=== PATIENT | female | born 1980 | race Caucasian/White ===

== ENCOUNTER 2016-12-30 00:03 | Inpatient (IN) | payer OTHER ==
--- NOTE | ~2016-12-30 | DS ---
Unit #: [id number] #: [id number] Patient: HIRAM CAUSEY [id number] [facility] [address] [place] [address] [id number] MR#: [id number] NAME: HIRAM CAUSEY. ROOM: P254 Age: 36 Sex: F Admission Date: 12/30/2016 : 1980 Discharge Date: 12/30/2016 Attending Physician: Matty Mijares M.D. DISCHARGE SUMMARY REASON FOR ADMISSION Substance abuse and depression. DIAGNOSTIC STUDIES LABORATORY RESULTS: Remarkable for MCV 98.4. Urine drug screen positive for marijuana, amphetamine, and benzodiazepine. HOSPITAL COURSE The patient was admitted to inpatient unit. The patient was able to maintain safe behavior, compliant, cooperative, and redirectable. The patient was able to contract for safety and wanted to go home. The patient was not holdable at this time. The patient currently denied any psychotic symptom or any suicidal or homicidal ideation. Subsequently, the patient was discharged with a plan to follow up in outpatient program. DISCHARGE MEDICATIONS None. DISCHARGE DIAGNOSES Psychiatric: Mood disorder, not otherwise specified, F32.9; amphetamine use disorder, severe, F15.20; cannabis abuse, moderate, F12.20; and sedative hypnotic use disorder, F13.20. Secondary diagnosis: Deferred. Medical diagnosis: Hypertension. Stressors: Psychosocial stressors. DISCHARGE INSTRUCTIONS The patient to follow up in outpatient clinic as per social sciences chair. CONDITION ON DISCHARGE The patient was pleasant and cooperative. Denied any psychotic symptoms or any suicidal ideation. PROGNOSIS Guarded. DIET AND ACTIVITY As tolerated. Unit #: [id number] #: [id number] Patient: HIRAM CAUSEY Dictated by... Brandi Delgadillo/amanda TD: 12/30/2016 20:04 JOB #: [id number] DISCHARGE SUMMARY Page 1 of 1 X Matty Mijares MD X DISCHARGE SUMMARY
--- NOTE | ~2016-12-30 | PA ---
Unit #: [id number] #: [id number] Patient: DIRK LARSEN [id number] [facility] [address] [place] [address] [id number] I MR#: [id number] NAME: DIRK LARSEN. ROOM: P254 Age: 36 Sex: F Admission Date: 12/30/2016 : 1980 Date of Assessment: Attending Physician: Matty Mijares M.D. Admitting Physician: Matty Mijares M.D. PSYCHIATRIC ASSESSMENT INFORMANTS The patient reliability, fair informant and chart reliability, good. CHIEF COMPLAINT Substance abuse. HISTORY OF PRESENT ILLNESS Ms. Dirk Larsen is a 36-year-old white female, who presented due to making comments about thoughts of hurting herself on 12/29/2016. The patient reported "I took a whole bottle of BuSpar on 8 a.m. and woke up at 6 p.m." The patient cannot confirm how many pills she ingested. The patient reported no current symptoms of overdose. The patient reported began scratching her arm because she still wanted to , the patient has multiple superficial scratches, but the patient reported to the technical writer that she was using different substances and was feeling sad and depressed, but currently denied any suicidal or homicidal ideation. Denied any psychotic symptom. The patient reported using marijuana and methamphetamine. The patient was able to contract for safety, compliant, cooperative, and redirectable. PAST PSYCHIATRIC HISTORY Remarkable for history of depression and anxiety, but no history of any suicide attempt. FAMILY HISTORY AND SOCIAL HISTORY The patient currently homeless and poor support system. No history of any abuse. MEDICAL HISTORY Remarkable for hypertension. Musculoskeletal; muscle strength and tone, no atrophy or abnormal movement. Gait normal. MEDICATION HISTORY None. ALLERGIES No known drug allergies. SUBSTANCE ABUSE HISTORY The patient reported tobacco use, age of onset 8; alcohol, age of onset 12; marijuana, age of onset 13; and methamphetamine, age of onset 18. Longest period of sobriety 2 days. Last period of sobriety 1 year ago. The patient reported history of blackout, but no history of any HIV, Unit #: [id number] #: [id number] Patient: DIKR LARSEN hepatitis, withdrawal symptoms, or any IV drug use. REVIEW OF SYSTEMS HEENT: Eyes, clear. Ears, nose, mouth, and throat; clear. CARDIOVASCULAR: Unremarkable. RESPIRATORY: Unremarkable. GI: Unremarkable. : Unremarkable. SKIN: Unremarkable. LYMPH NODE: Unremarkable. NEUROLOGIC: Unremarkable. ENDOCRINE: Unremarkable. HEMATOLOGIC: Unremarkable. ALLERGIC/IMMUNOLOGIC: Unremarkable. MUSCULOSKELETAL: Muscle strength and tone, no atrophy or abnormal movement. Gait normal. MENTAL STATUS EXAMINATION CONSTITUTIONAL: Measurement of vital signs; temperature 98.4, heart rate 84, respiratory rate 16, blood pressure 147/90, and weight 127 pounds. GENERAL APPEARANCE: The patient dressed casually. The patient did not show any facial deformity. MUSCULOSKELETAL: Please see above. PSYCHIATRIC EXAMINATION Description of speech, regular rate. Description of thought process, circumstantial. Description of association, intact. Description of abnormal psychotic thinking; the patient denied any hallucinations, delusions, or any suicidal or homicidal ideation at this time, but reported those thoughts at the time of admission. Description of the patient's judgment: Concerning everyday activity, poor. Social situation, poor. Concerning psychiatric condition, poor. Complete mental status examination; oriented in time, place, and person. Recent and remote memory, fair. Attention span and concentration, fair. Language, able to name object and repeat phrases. Fund of knowledge, aware of current event and passive vocabulary intact. Mood and affect, sad and dysphoric. Insight and judgment, fair to poor. ASSETS AND LIABILITIES Assets, the patient is articulate and able to take care of her ADL. Liability, history of substance abuse and depression. ADMITTING DIAGNOSES Psychiatric: Mood disorder, not otherwise specified, F32.9 and amphetamine use disorder, severe, F15.20. Secondary diagnosis: Deferred. Medical diagnosis: Hypertension. Stressors: Psychosocial stressors. PSYCHIATRIC PLAN AND TREATMENT GOAL AND DISCHARGE PLAN 1. Advised to admit the patient on the inpatient unit. Provide safe, supportive, and structured environment. 2. Ordered labs; CBC, CMP, UA, and UDS. 3. Precaution for self-harm. Unit #: [id number] #: [id number] Patient: DIRK LARSEN 4. The patient to attend all the programing on the inpatient unit. If needed, consider medication. TREATMENT GOAL To attain euthymic mood, gain insight into her problem, and learn coping skills. DISCHARGE PLAN Plan to stabilize the patient and consider followup in outpatient program. ESTIMATED LENGTH OF STAY 1 to 3 days. Dictated by... Brandi Delgadillo/amanda TD: 12/30/2016 16:32 JOB #: [id number] PSYCHIATRIC ASSESSMENT Page 1 of 1 X Matty Mijares MD PSYCHIATRIC ASSESSMENT
--- NOTE | ~2016-12-30 | HP ---
Unit #: [id number] #: [id number] Patient: DIRK CAUSEY [id number] [place] [address] [id number] MR#: [id number] NAME: DIRK CAUSEY. ROOM: P254 Age: 36 Sex: F Admission Date: 12/30/2016 : 1980 Attending Physician: Matty Mijares M.D. Admitting Physician: Matty Mijares M.D. Primary Care Physician: Primary Care Physician No HISTORY AND PHYSICAL HISTORY OF PRESENT ILLNESS Dirk is a 36 year old admitted to [address] [place] [address] with depression. PAST MEDICAL HISTORY 1. History of cervical dysplasia. 2. High blood pressure. PAST SURGICAL HISTORY 1. LEEP. 2. Tubal ligation. 3. Umbilical hernia repair. 4. Cholecystectomy. ALLERGIES Prozac. SOCIAL HISTORY Smokes 1 pack per day. Denies alcohol. Admits to using marijuana on a daily basis. FAMILY HISTORY Medically noncontributory. REVIEW OF SYSTEMS CONSTITUTIONAL: No fever or chills. HEENT: Denies any sore throat, ear pain or runny nose. CARDIOVASCULAR: Denies chest pain, irregular heart rhythm or palpitations. CHEST: Denies shortness of breath or cough. No hemoptysis. GASTROINTESTINAL: Denies nausea, vomiting, diarrhea or chronic constipation. ENDOCRINE: Denies history of increased thirst or urination. No recent significant weight loss or gain. GENITOURINARY: Denies dysuria, frequency, or hematuria. SKIN: Denies any rashes. HEMATOLOGIC: Denies history of increased bleeding or bruising. MUSCULOSKELETAL: Denies any hot, swollen joints. No generalized muscle pain. NEUROLOGIC: Denies problems with vision or speech. No frequent, severe headaches. No numbness, tingling or weakness in any extremities. Denies loss of bladder or bowel control. CURRENT MEDICATIONS 1. Milk of Magnesia p.r.n. Unit #: [id number] #: [id number] Patient: DIRK CAUSEY 2. Maalox p.r.n. 3. Tylenol p.r.n. 4. Nicotine patch 14 mg daily. PHYSICAL EXAMINATION GENERAL: Alert, well-nourished, in no apparent distress. VITAL SIGNS: Blood pressure 146/92, heart rate 80, respirations 16, temperature 98.6. WEIGHT: 127. HEIGHT: 5 feet 0 inches. SKIN: Warm and dry without rash or lesion. HEENT: Normocephalic. TMs not viewed. Oral and nasal passages clear. Conjunctivae clear. PERRLA. EOMs intact. NECK: Supple without lymphadenopathy or thyromegaly. HEART: Regular rate and rhythm without murmur. LUNGS: Clear. ABDOMEN: Soft, nontender. : Not done. EXTREMITIES: No evidence of cyanosis, clubbing or edema. Moves all without focal deficit. NEUROLOGICAL: Grossly within normal limits. Cranial Nerves: II: Visual whitehead are intact. III, IV AND : Extraocular movements are intact. Pupils are equal, round and reactive to light. V: Facial sensation is grossly normal. VII: Facial movements and expression are normal. VIII: Auditory acuity grossly intact. IX, X: Uvula is midline. Phonation is normal. XI: Patient shrugs shoulders and turns head normally. XII: Tongue protrudes in the midline. Sensory and Motor Function: Sensory and motor sensation is grossly normal. Motor: moves all extremities well. Coordination: Gait is normal. Deep Tendon Reflexes: Intact. IMPRESSION Psychiatric admission. RECOMMENDATIONS PSYCHIATRIC: Per psychiatrist. MEDICAL: See no contraindications to participate in facility's activities. MEDICAL PROGNOSIS Good. MEDICAL CONDITION Stable. Dictated by... Nguyen Moore P.A.-C. for Brandi Joy/lolly TD: 12/30/2016 21:46 JOB #: [id number] Unit #: [id number] #: [id number] Patient: DIRK CAUSEY HISTORY AND PHYSICAL Page 1 of 1 X Nguyen Moore HISTORY AND PHYSICAL
[2016-12-30 09:28] LABS: BASOPHIL# 0.1 X10e3 (0-0.3); BASOPHIL% 0.7 % (0-2.5); EOSINOPHIL# 0.1 X10e3 (0-0.7); EOSINOPHIL% 1.8 % (0.0-7.0); HEMOGLOBIN 13.1 gm/dL (12.0-16.0); LYMPHOCYTE# 3.2 X10e3 (1.0-3.5); LYMPHOCYTE% 38.4 % (17.0-45.0); MEAN CELL VOLUME 98.4 FL (83-96); MEAN CORPUSCULAR HEMOGLOBIN 32.2 PG (28-34); MEAN CORPUSCULAR HGB CONC 32.7 g/dL (30-36); MONOCYTE# 0.8 X10e3 (0-1.0); MONOCYTE% 9.2 % (3.0-12.0); NEUTROPHIL# 4.1 X10e3 (1.5-7.1); NEUTROPHIL% 49.9 % (40-75); PLATELET COUNT 291 X10e3 (140-420); RED BLOOD COUNT 4.07 X10e (3.90-5.30); RED CELL DISTRIBUTION WIDTH 13.2 % (11.0-15.5); WHITE BLOOD COUNT 8.2 X10e3 (4.0-10.5)
[2016-12-30 09:31] LABS: DIFF IND NO
[2016-12-30 09:42] LABS: URINE APPEARANCE CLOUDY; URINE BILIRUBIN NEG (NEG); URINE BLOOD NEG (NEG); URINE COLOR YELLOW; URINE GLUCOSE NEG (NEG); URINE KETONE TRACE (NEG); URINE LEUKOCYTE ESTERASE NEG (NEG); URINE NITRATE NEG (NEG); URINE PROTEIN NEG (NEG); URINE SPECIFIC GRAVITY 1.027 (1.003-1.035)
[2016-12-30 09:57] LABS: THYROID STIMULATING HORMONE 0.8 uIU/ml (0.34-5.60)
[2016-12-30 10:03] LABS: FREE THYROXIN (T4) 0.85 ng/dL (0.58-1.64)
[2016-12-30 10:27] LABS: ALBUMIN SERUM 3.7 g/dL (3.5-5.0); BILIRUBIN,TOTAL 0.2 mg/dL (0.2-2.0); BUN/CREATININE RATIO 12.85; CALCIUM SERUM 8.9 mg/dL (8.4-10.2); CREATININE SERUM 0.7 mg/dL (0.6-1.4); GLOM FILT RATE Estimated 111.5 mL/min (>60); POTASSIUM 4.2 mmol/L (3.5-5.1); PROTEIN TOTAL SERUM 6.3 g/dL (6.0-8.3)
[2016-12-30 10:44] LABS: AMPHETAMINE POS (NEG); BARBITURATES NEG (NEG); BENZODIAZEPINES POS (NEG); COCAINE NEG (NEG); MARIJUANA POS (NEG); OPIATES NEG (NEG); TRICYCLIC ANTIDEPRESSANTS NEG (NEG); U METHADONE NEG (NEG)
== END 2016-12-30 17:25 | disposition home or self-care (01) | DRG 885 ==
LOC: P2L 00:03
PROVIDERS: Psychiatry & Neurology Psychiatry
DX: F39 Unspecified mood [affective] disorder (principal); F13.20 Sedative, hypnotic or anxiolytic dependence, uncomplicated; F15.20 Other stimulant dependence, uncomplicated; F17.210 Nicotine dependence, cigarettes, uncomplicated; F12.20 Cannabis dependence, uncomplicated
CPT/HCPCS: 80053; 80307; 81003; 84439; 84443; 84703; 85025; 90688